=== PATIENT | male | born 1935 | race Hispanic/Latino ===

== ENCOUNTER 2017-11-10 11:50 | Emergency (ER) | payer MEDICARE ==
[2017-11-10 11:58] VITALS: RESP 16; TEMP 98.1; O2SAT 100
--- NOTE | 2017-11-10 12:21 | ED PDOC ---
Upper Extremity Pain/Injury Time Seen by Provider: 11/10/17 12:00 Chief Complaint (Nursing): Upper Extremity Problem/Injury Chief Complaint (Provider): Upper Extremity Problem/Injury History Per: Patient History/Exam Limitations: no limitations Onset/Duration Of Symptoms: Days (x2) Current Symptoms Are (Timing): Better Quality: Dull Severity: Mild Pain Scale Rating Of: 2 Hands/Wrist (Pic): 1 - Swelling, Erythema Additional Complaint(s): 83 year old male with medical history of hypertension and hypercholesterolemia, presents to the emergency department with for an evaluation of left hand pain associated with swelling status post mechanical fall yesterday around 1400. Denied any loss of consciousness or dizziness. Patient reported taking Tramadol for pain relief 2 hours prior to arrival. PMD: Lucía Capellan MD Past Medical History Reviewed: Historical Data, Nursing Documentation, Vital Signs Vital Signs: Last Vital Signs Temp 98.1 F 11/10/17 11:56 Pulse 91 H 11/10/17 11:56 Resp 16 11/10/17 11:56 BP 168/85 H 11/10/17 11:56 Pulse Ox 100 11/10/17 11:56 - Medical History PMH: HTN, Hyperlipidemia - Surgical History Surgical History: Coronary Stent Denies: No Surg Hx - Family History Family History: States: Unknown Family Hx - Social History Current smoker - smoking cessation education provided: No Alcohol: Social Drugs: Denies - Allergies Allergies/Adverse Reactions: Allergies Allergy/AdvReac Type Severity Reaction Status Date / Time latex AdvReac REDNESS Verified 11/10/17 11:58 Review of Systems ROS Statement: Except As Marked, All Systems Reviewed And Found Negative Musculoskeletal: Positive for: Hand Pain (left-sided with pain) Neurological: Negative for: Dizziness, Other (LOC) Physical Exam - Reviewed Nursing Documentation Reviewed: Yes Vital Signs Reviewed: Yes - Physical Exam Appears: Positive for: Well, Non-toxic, No Acute Distress Extremity: Positive for: Normal ROM (left hand and digits 1-4), Tenderness (5/5 certified recreational therapist strength bilaterally; ), Swelling (left hand), Other (5/5 certified recreational therapist strength bilaterally with sensation intact; 5th digit deviation; mild ecchymosis on palmar side of thenar eminance). Negative for: Deformity (left hand) Neurologic/Psych: Positive for: Alert (x3), Oriented. Negative for: Motor/ Sensory Deficits - ECG O2 Sat by Pulse Oximetry: 100 (RA) Pulse Ox Interpretation: Normal Medical Decision Making Medical Decision Making: Initial Impression: Left hand pain S/P mechanical fall Initial Plan: * Xray hand (left) * Xray wrist (left) Time: 1244 --Xray hand FINDINGS: BONES: Minimally displaced fracture of the scaphoid tubercle. JOINTS: Unremarkable. SOFT TISSUES: Mild soft tissue swelling about the wrist. OTHER FINDINGS: None. IMPRESSION: Minimally displaced fracture of the scaphoid tubercle. Time: 1245 --Xray wrist FINDINGS: BONES: Minimally displaced fracture of the scaphoid tubercle. JOINTS: Unremarkable. SOFT TISSUES: Regional soft tissue swelling. OTHER FINDINGS: None. IMPRESSION: Minimally displaced fracture of the scaphoid tubercle. Scribe Attestation: Documented by Ilana Chery, acting as a scribe for Jose Garcia PA-C. Provider Scribe Attestation: All medical record entries made by the Scribe were at my direction and personally dictated by me. I have reviewed the chart and agree that the record accurately reflects my personal performance of the history, physical exam, medical decision making, and the department course for this patient. I have also personally directed, reviewed, and agree with the discharge instructions and disposition. Procedures - Time-Out Type of Procedure: splinting Correct Patient: Yes Correct Procedure: Yes Correct Site Marked: Yes X-Ray Marked: Yes - Splinting Pre-Made Type: metal Splint: wrist Disposition - Clinical Impression Clinical Impression: Hand pain, Fracture of hand Clinical Impression: (Ruled Out): Fracture closed, acetabulum - Patient ED Disposition Is Patient to be Admitted: No Discussed With Dr.: Dennys Swenson Doctor Will See Patient In The: Office Counseled Patient/Family Regarding: Diagnosis, Need For Followup - Disposition Referrals: Dennys Swenson MD [Staff Provider] - Disposition: Discharged to Home Care Disposition Time: 13:53 Condition: GOOD Instructions: Hand Fracture Forms: [employer] (Dutch)
--- NOTE | 2017-11-10 12:45 | RAD ---
PROCEDURE: Left Hand Radiographs. HISTORY: r/o fx COMPARISON: None. FINDINGS: BONES: Minimally displaced fracture of the scaphoid tubercle. JOINTS: Unremarkable. SOFT TISSUES: Mild soft tissue swelling about the wrist. OTHER FINDINGS: None. IMPRESSION: Minimally displaced fracture of the scaphoid tubercle. Findings conveyed to MEENA Garcia by Dr. Leiva at 12:42 p.m. on 11/10/2017.
--- NOTE | 2017-11-10 12:46 | RAD ---
PROCEDURE: Left Wrist Radiographs. HISTORY: r/o fx COMPARISON: None. FINDINGS: BONES: Minimally displaced fracture of the scaphoid tubercle. JOINTS: Unremarkable. SOFT TISSUES: Regional soft tissue swelling. OTHER FINDINGS: None. IMPRESSION: Minimally displaced fracture of the scaphoid tubercle. Findings conveyed to MEENA Garcia by Dr. Leiva at 12:42 p.m. on 11/10/2017.
[2017-11-10 12:52] VITALS: BP 152/75; PULSE 77
== END 2017-11-10 14:14 | disposition home or self-care (01) ==
LOC: H.ER 11:50
DX: S62.002A Unspecified fracture of navicular [scaphoid] bone of left wrist, initial encounter for closed fracture (principal); W19.XXXA Unspecified fall, initial encounter

== ENCOUNTER 2019-01-28 19:41 | Emergency (ER) | payer MEDICARE ==
[2019-01-28 20:42] VITALS: O2SAT 97
[2019-01-28] MEDS ORDERED: Tdap Vaccine 0.5 ml Vial (10-64 yrs) IM ONE ×2 (21:13→21:37)
[2019-01-28] MEDS ORDERED: Lidocaine/Epi 1% 1:100000 20 ML IJ ONE (21:13)
--- NOTE | 2019-01-28 21:25 | ED PDOC ---
HPI: Trauma/Fall - HPI Time Seen by Provider: 01/28/19 21:06 Chief Complaint (Nursing): Trauma History Per: Patient Additional Complaint(s): Pt. states at approximately 1830 today he was crossing the street when he tripped and fell striking his forehead onto the pavement causing a laceration on his L eyebrow. Pt. states he did not lose consciousness and was able to get up on his own afterwards. Also states while waiting in the ED he developed L wrist pain. States he did fall with his outstretched L arm. Denies numbness, tingling, LOC, headache, anticoagulant use, previous TBI, neck pain, chest pain, dizziness, abdominal pain, other injury. Past Medical History Reviewed: Historical Data, Nursing Documentation, Vital Signs Vital Signs: Last Vital Signs Temp 97.9 F 01/28/19 20:41 Pulse 80 01/28/19 20:41 Resp 16 01/28/19 20:41 BP 133/71 01/28/19 20:41 Pulse Ox 97 01/28/19 20:41 Primary Care Provider: Lucía Capellan - Medical History PMH: Diabetes, HTN, Hyperlipidemia - Surgical History Surgical History: Coronary Stent - Family History Family History: States: No Known Family Hx - Allergies Allergies/Adverse Reactions: Allergies Allergy/AdvReac Type Severity Reaction Status Date / Time latex AdvReac REDNESS Verified 01/28/19 20:45 Review of Systems ROS Statement: Except As Marked, All Systems Reviewed And Found Negative Physical Exam - Physical Exam Appears: Positive for: Well, Non-toxic, No Acute Distress Head Exam: Negative for: ATRAUMATIC (L upper eyelid with 1cm superficial linear laceration and inferior to that there is a 0.5cm superficial linear laceration both without active bleeding and are non-gaping), NORMAL INSPECTION, NORMOCEPHALIC Skin: Positive for: Normal Color, Warm. Negative for: Rash Eye Exam: Positive for: EOMI, PERRL, Other (no hyphema). Negative for: Periorbital swelling, Periorbital tenderness ENT: Positive for: Normal ENT Inspection, TM Is/Are (no hemotympanum b/l) Neck: Positive for: Normal, Painless ROM, Supple Pulses-Radial (L): 2+ Pulses-Radial (R): 2+ Back: Positive for: Normal Inspection. Negative for: L CVA Tenderness, R CVA Tenderness, Vertebral Tenderness (including c-spine) Extremity: Positive for: Normal ROM, Capillary Refill (< 2 seconds of LUE), Other (Left upper extremity without tenderness, swelling or deformity) Neurological/Psych: Positive for: Awake, Alert, Oriented (x3), Gait (steady, unassisted) - ECG O2 Sat by Pulse Oximetry: 97 - Radiology X-Ray: Interpreted by Me (wrist x-ray) X-Ray Interpretation: No Acute Disease - CT Scan/US CT head w/o contrast Other Rad Studies (CT/US): Read By Radiologist (negative) - Progress ED Course And Treament: Wrist x-ray, CT head w/o contrast ordered. Tetanus prophylaxis administered. Procedures - Time-Out Type of Procedure: Laceration repair Site of Procedure: L upper eyelid Correct Patient (with visual ID + MR# on ID Band): Yes Correct Procedure: Yes Correct Site Marked: Yes PA/Tech: Brenda [facility] - Laceration/Wound Repair Laceration repair Wound Length (cm): 3.5 Wound's Depth, Shape: superficial, linear Wound Explored: clean Irrigated w/ Saline (ccs): 100 Betadine Prep?: Yes Anesthesia: Lidocaine w/ Epi Volume Anesthetic (ccs): 3 Wound Repaired With: Sutures Suture Size/Type: 6:0 (ethilon) Number of Sutures: 8 Layer Closure?: No Wound Complexity: Simple Sterile Dressing Applied?: Yes Disposition - Clinical Impression Clinical Impression: Head injury, Facial laceration, Wrist sprain - Patient ED Disposition Is Patient to be Admitted: No - Disposition Referrals: Brenda Neil [Outside] Disposition: Routine/Home Disposition Time: 01:00 Condition: STABLE Additional Instructions: SUTURE REMOVAL IN 7 DAYS Instructions: Laceration Repair With Stitches (DC), Minor Head Injury (DC), Common Wrist Injuries (DC) Forms: [employer] (Chinese)
[2019-01-29 05:21] VITALS: BP 132/78; PULSE 79; RESP 18; TEMP 98.1
--- NOTE | 2019-01-29 09:13 | CT ---
Date of service: 01/29/2019 PROCEDURE: CT HEAD WITHOUT CONTRAST. HISTORY: trauma COMPARISON: None available. TECHNIQUE: Axial computed tomography images were obtained through the head/brain without intravenous contrast. Radiation dose: Total exam DLP = 816.86 mGy-cm. This CT exam was performed using one or more of the following dose reduction techniques: Automated exposure control, adjustment of the mA and/or kV according to patient size, and/or use of iterative reconstruction technique. FINDINGS: HEMORRHAGE: No intracranial hemorrhage. BRAIN: Mild diffuse age-appropriate cerebral atrophy. Mild periventricular white matter lucency consistent with chronic microvascular white matter ischemic change. No evidence of acute infarct. VENTRICLES: Unremarkable. No hydrocephalus. CALVARIUM: Unremarkable. PARANASAL SINUSES: Unremarkable as visualized. No significant inflammatory changes. MASTOID AIR CELLS: Unremarkable as visualized. No inflammatory changes. OTHER FINDINGS: None. IMPRESSION: Evidence of acute no acute intracranial hemorrhage. Age related atrophy and chronic white matter ischemic change. Otherwise unremarkable examination. The preliminary findings for this examination were reported by [facility] at 12:54 a.m. on 01/29/2019. There is concurrence of this report with the preliminary findings.
--- NOTE | 2019-01-29 14:48 | RAD ---
Date of service: 01/28/2019 PROCEDURE: Right Wrist Radiographs. HISTORY: trauma COMPARISON: None. TECHNIQUE: 4 views obtained. FINDINGS: BONES: Normal. No fracture. JOINTS: Normal. No dislocation. SOFT TISSUES: Normal. OTHER FINDINGS: None. IMPRESSION: No acute findings related to/ accounting for the clinical presentation.
== END 2019-01-29 01:15 | disposition home or self-care (01) ==
LOC: H.ER 19:41
DX: S63.302A Traumatic rupture of unspecified ligament of left wrist, initial encounter (principal); S09.90XA Unspecified injury of head, initial encounter; E11.9 Type 2 diabetes mellitus without complications; E78.5 Hyperlipidemia, unspecified; Z95.5 Presence of coronary angioplasty implant and graft; W01.0XXA Fall on same level from slipping, tripping and stumbling without subsequent striking against object, initial encounter; S01.81XA Laceration without foreign body of other part of head, initial encounter; Z23 Encounter for immunization

== ENCOUNTER 2019-02-04 13:30 | Emergency (ER) | payer MEDICARE ==
[2019-02-04 14:09] VITALS: RESP 16; TEMP 98.7; O2SAT 96
--- NOTE | 2019-02-04 15:01 | ED PDOC ---
HPI: Wound Care - HPI Time Seen by Provider: 02/04/19 14:28 Chief Complaint (Nursing): Wound Check Chief Complaint (Provider): Suture Removal History Per: Patient Exam Limitations: no limitations Onset/Duration Of Symptoms: Days (x7) Current Symptoms Are (Timing): Better Additional Complaint(s): 83 year old male presents to the ED for suture removal. Patient was seen here 01/28/19 s/p a fall where he sustained a laceration to the left eyebrow and subsequently had eight stitches placed. Denies fever, chills, pain, and pus drainage. Of note, he says he has been washing it daily with soap and water. Tetanus up to date Past Medical History Reviewed: Historical Data, Nursing Documentation, Vital Signs Vital Signs: Last Vital Signs Temp 98.7 F 02/04/19 14:06 Pulse 78 02/04/19 14:06 Resp 16 02/04/19 14:06 BP 154/69 H 02/04/19 14:06 Pulse Ox 96 02/04/19 14:06 Primary Care Provider: Non [facility] Provider, - Medical History PMH: Diabetes, HTN, Hyperlipidemia - Surgical History Surgical History: Coronary Stent - Family History Family History: States: Unknown Family Hx - Social History Current smoker - smoking cessation education provided: No Alcohol: Occasional Drugs: Denies - Immunization History Hx Tetanus Toxoid Vaccination: Yes Hx Influenza Vaccination: Yes Hx Pneumococcal Vaccination: Yes - Allergies Allergies/Adverse Reactions: Allergies Allergy/AdvReac Type Severity Reaction Status Date / Time latex AdvReac REDNESS Verified 01/28/19 20:45 Review of Systems ROS Statement: Except As Marked, All Systems Reviewed And Found Negative Constitutional: Negative for: Fever, Chills Skin: Positive for: Other ([address] to left eyebrow with no pain or pus drainage) Physical Exam - Reviewed Nursing Documentation Reviewed: Yes Vital Signs Reviewed: Yes - Physical Exam Appears: Positive for: Well Eye Exam: Positive for: EOMI, PERRL, Other (approximately 6cm healing wound to left eyebrow with [address] and no surrounding erythema, swelling, or drainge noted; some scabs appreciated over certain stitches) Neurological/Psych: Positive for: Awake, Alert, Oriented (x3) - ECG O2 Sat by Pulse Oximetry: 96 (RA) Pulse Ox Interpretation: Normal Medical Decision Making Medical Decision Making: Time: 1500 Initial Impression: suture removal Initial Plan: --Removed eight stitches from left eyebrow. Patient tolerated procedure well with no complications or wound dehiscence. Advised him to use bacitracin until would has fully healed and scabs have dissipated. Stable for d/c home with verbalization of return parameters. Scribe Attestation: Documented by Lisa Rinaldi, acting as a scribe for Lauren Stewart PA-C Provider Scribe Attestation: All medical record entries made by the Scribe were at my direction and personally dictated by me. I have reviewed the chart and agree that the record accurately reflects my personal performance of the history, physical exam, medical decision making, and the department course for this patient. I have also personally directed, reviewed, and agree with the discharge instructions and disposition. Disposition - Clinical Impression Clinical Impression: Visit for suture removal - Patient ED Disposition Is Patient to be Admitted: No - Disposition Referrals: Lucía Capellan MD [Family Provider] - Disposition: Routine/Home Disposition Time: 15:00 Condition: STABLE Additional Instructions: Continue to use Bacitracin as needed until scabs fall off. No need to cover wound. Return to ER if wound begins to re-open or if you develop fever, chills or pus drainage from site. Instructions: Stitches Removal Forms: [employer] (Maltese) Print Language: TU[place]
[2019-02-04 15:08] VITALS: BP 142/70; PULSE 80
== END 2019-02-04 15:05 | disposition home or self-care (01) ==
LOC: H.ER 13:30
DX: Z48.02 Encounter for removal of sutures (principal)